=== PATIENT | female | born 1950 | race Caucasian/White ===

== ENCOUNTER → 2016-10-08 | Outpatient (CLI) | payer OTHER ==
[~2016-10-08] MED LIST: ALPRAZOLAM; ALPRAZOLAM0.5 MG PO; AMITRIPTYLINE150 MG PO; AMITRYPTYLINE; AMITRYPTYLINE PO; AMLODIPINE BESY10 MG PO; ASPIRIN325 M1 PO; ATARAX; ATARAX PO; BACITRACIN1 GM OINT EXT; CITALOPRAM HBR40 MG PO; CLEOCIN150 M1 PO; CULTURELLE CAP1 EACH PO; DARVOCET-N 1001 TA1 PO; EVISTA60 M1 PO; FEMARA2.5 MG PO; FISH OIL 1,0001 CA2 PO; FUROSEMIDE40 MG PO; GLIPIZIDE10 MG PO; HYDROCODON-ACE1 EAC5 PO; HYDROCODONE-APA1 T57 PO; IRON1 TAB PO; IRON325 ( 651 PO; KCL PO; LASIX; LASIX PO; LEVAQUIN PO; LEVOXYL75 MC1 PO; LEXAPRO; LEXAPRO20 MG PO; LISINOPRIL; LOPRESSOR PO; LORTAB 7.5-5001 TAB PO; NEXIUM PO; NORVASC10 MG PO; OMEPRAZOLE40 M1 PO; PENTOXIFYLLINE PO; PRILOSEC; PRINIVIL40 MG PO; SANCTURA XR60 MG PO; VITAMIN D1000 UNI1 PO; XANAX0.5 MG PO; [UNRECOGNIZED DRUG - OTHER]
[2016-10-08 16:08] LABS: ALBUMIN SERUM 4.1 g/dL (3.5-5.0); BUN/CREATININE RATIO 29.09; CALCIUM SERUM 9.2 mg/dL (8.4-10.2); CREATININE SERUM 1.1 mg/dL (0.6-1.4); GLOM FILT RATE Estimated 51.9 mL/min (>60); PHOSPHOROUS 3.2 mg/dL (2.5-4.6); POTASSIUM 3.5 mmol/L (3.5-5.1)
== END | disposition home or self-care (01) ==
LOC: SLAB 15:21
PROVIDERS: Internal Medicine Nephrology
DX: N18.3 Chronic kidney disease, stage 3 (moderate) (principal)
CPT/HCPCS: 36415; 80069

== ENCOUNTER → 2017-02-11 | Outpatient (CLI) | payer OTHER ==
--- NOTE | ~2017-02-11 | MR17 ---
[facility]. [facility] A Service of [facility] RADIOLOGY TEXT RESULTS PATIENT: KAREN HARRIS LOCATION: [facility] : 46 UNIT #: [id number] AGE: [address]: Stephenie Cline MD SEX: F ORDER DR: [id number] [place] [id number] O MR#: [id number] Acc #: [id number] NAME: KAREN HARRIS : 1950 SEX: F STUDY DATE/TIME: 02/11/2017 10:41 UNIT: [facility] ROOM: STUDY DESCRIPTION: MR Brain WWo Contrast Attending Physician: Stephenie Cline M.D. Referring Physician: Stephenie Cline M.D. Ordering Physician: Stephenie Cline M.D. Primary Care Physician: Stephenie Cline M.D. MRI CENTER REPORT This report is preliminary unless electronic signature is present. EXAM MRI of the brain with and without HISTORY Headaches. No known injury. Patient complains that the headaches are increasing in frequency and severity for greater than a month and is unsteady on feet. History of breast cancer in 1998 treated with radiation therapy. The patient also complains of new onset visual hallucinations. COMMENT MRI of the brain was performed prior to and following intravenous administration of 20 mL of MultiHance. Comparison study is from 09/27/2014. There is no MRI evidence for intracranial hemorrhage. There is no evidence for a recent ischemic insult on the diffusion series. There is no extraaxial fluid collection. The major intracranial flow voids are maintained. Mastoid air cells are clear. There is mucosal disease in the left anterior ethmoid air cells. There is no sinus air-fluid level. The patient has had cataract surgery on the right. There is mild generalized atrophy. There is minor periventricular white matter signal abnormality which is nonspecific but likely due to small vessel disease. Following contrast administration, there is no pathologic intracranial enhancement. No intracranial mass lesion or mass effect and nothing to suggest intracranial metastatic disease. IMPRESSION 1. Redemonstration of mild probable sequelae of small vessel disease. No recent ischemic insult is suspected. 2. Nothing to suggest intracranial metastatic disease. STS. [facility] A Service of [facility] RADIOLOGY TEXT RESULTS PATIENT: KAREN HARRIS LOCATION: [facility] : 46 UNIT #: [id number] AGE: [address]: Stephenie Cline MD SEX: F ORDER DR: Dictated by... Kristin Mcmullen M.D. THIS IS AN ELECTRONICALLY VERIFIED REPORT Kristin Mcmullen M.D. at 02/12/2017 7:30 AM SHERRILL/lexi TD: 02/12/2017 04:00 JOB #: [id number] MRI CENTER REPORT Page 1 of 1
[2017-02-11 11:15] LABS: POC - CREATININE 1.1 mg/dL (0.44-1.03)
== END | disposition home or self-care (01) ==
LOC: SMRI 09:01
PROVIDERS: Family Medicine
DX: R51 Headache (principal); R44.1 Visual hallucinations
CPT/HCPCS: 70553; 82565; A9581

== ENCOUNTER → 2017-03-20 | Outpatient (CLI) | payer OTHER ==
[2017-03-20 13:26] LABS: BUN/CREATININE RATIO 17.69; CALCIUM SERUM 9.2 mg/dL (8.4-10.2); CREATININE SERUM 1.3 mg/dL (0.6-1.4); GLOM FILT RATE Estimated 42.1 mL/min (>60); POTASSIUM 4.9 mmol/L (3.5-5.1)
== END | disposition home or self-care (01) ==
LOC: SRAD 12:49 → SLAB 12:49
PROVIDERS: Internal Medicine Gastroenterology
DX: K75.81 Nonalcoholic steatohepatitis (NASH) (principal)
CPT/HCPCS: 36415; 80048